=== PATIENT | male | born 1955 | race Asian ===

== ENCOUNTER 2019-01-11 19:35 | Inpatient (IN) | payer OTHER ==
[~2019-01-11] VITALS: Ht 182.9 cm; Wt 81.8 kg
[~2019-01-11 19:35] MED LIST: AMLO10TA80 PO
[2019-01-12] MEDS ORDERED: MORPHINE SULFATE 4 MG/ML CPJ (NOT FOR IM USE) IV STA (03:25)
[2019-01-12] MEDS ORDERED: ALBUTEROL (0.083%) 2.5MG/3ML NEB HHN ONE ×2 (03:30→06:45)
[2019-01-12] MEDS: METHYLPREDNISOLONE SOD SUCC 125 MG/2 ML VIAL IV ONE ×2 (03:45→03:46)
[2019-01-12 03:47] LABS: BASOPHILS % 0.8 % (0.0-2.0); EOSINOPHILS % 3.2 % (0.0-5.0); HEMATOCRIT. 42.4 % (42.0-52.0); HEMOGLOBIN. 14.5 g/dL (14.0-18.0); LYMPHOCYTES % 9.3 % (20.0-50.0); MEAN CORPUSCULAR HEMOGLOBIN 28.2 pg (28.0-32.0); MEAN CORPUSCULAR VOLUME 82.5 fL (80.0-94.0); MEAN PLATELET VOLUME 8.2 fl (7.4-10.4); MONOCYTES % 7.7 % (2.0-8.0); PLATELET 300 x1000/uL (130-400); RED BLOOD CELL COUNT 5.14 mill/uL (4.7-6.1); RED CELL DISTRIBUTION WIDTH 14.5 % (11.6-14.6)
[2019-01-12 03:49] LABS: CHLORIDE 103 mEq/L (98-107)
[2019-01-12] MEDS ORDERED: LORAZEPAM 2MG/ML CPJ IV ONE (05:00)
[2019-01-12] MEDS ORDERED: GADOBENATE DIMEGLUMINE 529 MG/ML 10ML IV ONE ×2 (05:15→17:41)
[2019-01-12] MEDS ORDERED: MORPHINE SULFATE 4 MG/ML CPJ (NOT FOR IM USE) IV ONE (06:45)
[2019-01-12] MEDS ORDERED: ACETAMINOPHEN 325MG TABLET PO PRN (09:00)
[2019-01-12] MEDS ORDERED: MAGNESIUM/ALUMINUM HYDROXIDE/SIMETHICONE 30ML UDC PO PRN (09:00)
[2019-01-12] MEDS ORDERED: DOCUSATE SODIUM 100MG CAPSULE PO PRN (09:00)
[2019-01-12] MEDS ORDERED: DIPHENHYDRAMINE 50MG/ML VIAL IV PRN (09:00)
[2019-01-12] MEDS ORDERED: GUAIFENESIN 200MG/10ML SUGAR FREE UDC PO PRN (09:00)
[2019-01-12] MEDS ORDERED: CLONIDINE 0.1MG TABLET PO PRN (09:00)
[2019-01-12] MEDS ORDERED: ONDANSETRON HCL 4MG/2ML INJ IV PRN (09:00)
[2019-01-12] MEDS ORDERED: ASPI-1393 PO (09:19)
[2019-01-12 09:20] VITALS: BP 116/74
[2019-01-12 09:29] LABS: PHOSPHORUS 4.6 mg/dL (2.5-4.9)
[2019-01-12 09:34] VITALS: BP 116/74
[2019-01-12] MEDS: ENOXAPARIN 40MG/0.4ML SYR SUBCUT SCH (10:11)
[2019-01-12 11:56] VITALS: BP 115/78
[2019-01-12] MEDS ORDERED: DEXTROSE 50% WATER 50ML SYRINGE IV ONE (13:00)
[2019-01-12] MEDS ORDERED: INSULIN REGULAR (HUMULIN R) UD 100 UNITS/ML SYR IV SCH (13:00)
[2019-01-12 16:30] VITALS: BP 120/78
[2019-01-12 17:57] LABS: CREATINE KINASE MB FRACTION 2.6 ng/mL (0.5-3.6)
[2019-01-12 20:00] VITALS: BP 130/76
[2019-01-12] MEDS: MORPHINE SULFATE 4 MG/ML CPJ (NOT FOR IM USE) IV PRN (20:03)
[2019-01-13] VITALS: BP 118/82
[2019-01-13 00:55] LABS: CREATINE KINASE MB FRACTION 2.2 ng/mL (0.5-3.6)
[2019-01-13 04:00] VITALS: BP 124/80
[2019-01-13 07:03] LABS: HEMATOCRIT. 39.4 % (42.0-52.0); HEMOGLOBIN. 12.8 g/dL (14.0-18.0); MEAN CORPUSCULAR HEMOGLOBIN 27.3 pg (28.0-32.0); MEAN CORPUSCULAR VOLUME 83.6 fL (80.0-94.0); MEAN PLATELET VOLUME 8.7 fl (7.4-10.4); PLATELET 303 x1000/uL (130-400); RED BLOOD CELL COUNT 4.71 mill/uL (4.7-6.1); RED CELL DISTRIBUTION WIDTH 14.6 % (11.6-14.6)
[2019-01-13 07:21] LABS: CHLORIDE 104 mEq/L (98-107)
[2019-01-13 07:44] LABS: LDL CHOLESTEROL 135 mg/dL (5-100)
[2019-01-13 07:46] LABS: HDL CHOLESTEROL 47 mg/dL (40-59)
[2019-01-13 08:00] VITALS: BP 121/81
[2019-01-13] MEDS: MORPHINE SULFATE 4 MG/ML CPJ (NOT FOR IM USE) IV PRN (09:26)
[2019-01-13] MEDS: ENOXAPARIN 40MG/0.4ML SYR SUBCUT SCH (09:27)
[2019-01-13] MEDS: DEXAMETHASONE 4MG/ML 1ML VIAL IV SCH ×3 (09:27→19:01)
[2019-01-13 12:00] VITALS: BP 127/78
[2019-01-13 16:00] VITALS: BP 113/82
[2019-01-13 16:14] LABS: PLATELET ESTIMATE NORMAL
[2019-01-13 20:00] VITALS: BP 121/77
[2019-01-14] VITALS (7 sets, daily range): BP systolic 92–143; BP diastolic 28–96
[2019-01-14] MEDS: IPRATROPIUM/ALBUTEROL 0.5-3(2.5)MG/3ML NEB INH PRN ×2 (00:22→20:31)
[2019-01-14] MEDS: BUDESONIDE 0.5MG/2ML NEB HHN SCH ×3 (00:22→20:31)
[2019-01-14] MEDS: DEXAMETHASONE 4MG/ML 1ML VIAL IV SCH ×5 (01:08→23:25)
[2019-01-14] MEDS: MORPHINE SULFATE 4 MG/ML CPJ (NOT FOR IM USE) IV PRN ×3 (01:30→15:54)
[2019-01-14 07:23] LABS: HEMATOCRIT. 39.8 % (42.0-52.0); HEMOGLOBIN. 13.2 g/dL (14.0-18.0); MEAN CORPUSCULAR HEMOGLOBIN 27.5 pg (28.0-32.0); MEAN CORPUSCULAR VOLUME 83.2 fL (80.0-94.0); MEAN PLATELET VOLUME 8.8 fl (7.4-10.4); PLATELET 304 x1000/uL (130-400); RED BLOOD CELL COUNT 4.78 mill/uL (4.7-6.1); RED CELL DISTRIBUTION WIDTH 14.5 % (11.6-14.6)
[2019-01-14 07:32] LABS: CHLORIDE 103 mEq/L (98-107)
[2019-01-14] MEDS: ENOXAPARIN 40MG/0.4ML SYR SUBCUT SCH (09:17)
[2019-01-14 10:11] LABS: IMMUNOGLOBULIN A 593 mg/dL (61-437); IMMUNOGLOBULIN G 1577 mg/dL (700-1600); IMMUNOGLOBULIN M 35 mg/dL (20-172)
[2019-01-14 10:34] LABS: PLATELET ESTIMATE NORMAL
[2019-01-14 15:36] LABS: INR 1.1; PARTIAL THROMBOPLASTIN TIME 27.8 sec (23.4-31.0); PROTHROMBIN TIME 11.1 sec (9.6-11.0)
[2019-01-15] VITALS (7 sets, daily range): BP systolic 125–136; BP diastolic 86–97
[2019-01-15] MEDS: MORPHINE SULFATE 4 MG/ML CPJ (NOT FOR IM USE) IV PRN ×3 (06:28→20:38)
[2019-01-15] MEDS: DEXAMETHASONE 4MG/ML 1ML VIAL IV SCH (06:28)
[2019-01-15 07:01] LABS: CHLORIDE 102 mEq/L (98-107)
[2019-01-15 07:25] LABS: HEMATOCRIT. 42.5 % (42.0-52.0); HEMOGLOBIN. 13.8 g/dL (14.0-18.0); MEAN CORPUSCULAR HEMOGLOBIN 27.1 pg (28.0-32.0); MEAN PLATELET VOLUME 8.8 fl (7.4-10.4); PLATELET 323 x1000/uL (130-400); RED BLOOD CELL COUNT 5.12 mill/uL (4.7-6.1); RED CELL DISTRIBUTION WIDTH 14.4 % (11.6-14.6)
[2019-01-15] MEDS: BUDESONIDE 0.5MG/2ML NEB HHN SCH ×2 (08:14→20:09)
[2019-01-15 10:35] LABS: PLATELET ESTIMATE NORMAL
[2019-01-16] VITALS: BP 117/83
[2019-01-16 04:00] VITALS: BP 123/83
[2019-01-16 08:00] VITALS: BP 144/88
[2019-01-16] MEDS ORDERED: IPRA3AMP9 HHN (09:20)
[2019-01-16] MEDS: MORPHINE SULFATE 4 MG/ML CPJ (NOT FOR IM USE) IV PRN (10:08)
[2019-01-16 12:00] VITALS: BP 125/86
[2019-01-16 15:15] VITALS: BP 137/89
== END 2019-01-16 15:42 | DRG 189 ==
LOC: ER 21:58 → 6WST 01-12 05:08 → UNDOADMIN 01-12 05:08 → 6WST 01-12 06:24 → ENRESERV 01-12 07:58
PROVIDERS: ADMIT Internal Medicine; ATTEND Internal Medicine
DX: J96.01 Acute respiratory failure with hypoxia (principal); J44.1 Chronic obstructive pulmonary disease with (acute) exacerbation; C78.00 Secondary malignant neoplasm of unspecified lung; C79.51 Secondary malignant neoplasm of bone; M84.48XA Pathological fracture, other site, initial encounter for fracture; G89.3 Neoplasm related pain (acute) (chronic); E78.5 Hyperlipidemia, unspecified; E83.41 Hypermagnesemia; E87.5 Hyperkalemia; I10 Essential (primary) hypertension; N40.1 Benign prostatic hyperplasia with lower urinary tract symptoms; R74.0 Nonspecific elevation of levels of transaminase and lactic acid dehydrogenase [LDH]; R16.0 Hepatomegaly, not elsewhere classified; G89.29 Other chronic pain; N39.498 Other specified urinary incontinence; Z87.891 Personal history of nicotine dependence; Z79.899 Other long term (current) drug therapy; Z79.82 Long term (current) use of aspirin
CPT/HCPCS: 36415; 71045; 71250; 72156; 72157; 72158; 74176; 76700; 78306; 80048; 80061; 82550; 82553; 82784; 82962; 83036; 83735; 83880; 84100; 84153; 84443; 86334; 93970; 94640; 96374; 96375; 97161; 97162; 97166; 99285; A9503; A9577; J1100; J1650; J1815; J2060; J2270; J2930; J7611; J7620; J7626; G0103